=== PATIENT | female | born 1975 | race Caucasian/White ===

== ENCOUNTER 2017-10-25 16:00 | Outpatient (CLI) | payer OTHER | END 2017-10-25 16:01 | disposition home or self-care (01) | LOC: BICRAD 16:00 | PROVIDERS: ATTEND Family Medicine | DX: M54.2 Cervicalgia (principal); M47.892 Other spondylosis, cervical region | CPT/HCPCS: 72052 ==

== ENCOUNTER 2017-12-05 10:21 | Day surgery (SDC) | payer OTHER ==
[2017-12-01 17:02] VITALS: BMI 20.3
[2017-12-05] MEDS ORDERED: Lidocaine 1% w/Epinephrine 1:200K 30 ML VIAL ONE (11:56)
--- NOTE | 2017-12-05 15:25 | OP ---
DATE OF SERVICE: 12/05/2017 LOOP RECORDER IMPLANTATION REFERRING PHYSICIAN: Dr. Jef Pinto. REASON FOR PROCEDURE: Ms. Mcdowell is a 42-year-old woman with prior history of SVT and ablation, who h as now syncopal spells, etiology unclear, rule out arrhythmic etiology. PROCEDURE: After prepping and draping the precordial area, the mid sternal area around the 4th inter costal space was prepped, draped, and anesthetized with subcutaneous lidocaine. Incision was made in this area and a standard LINQ loop recorder was implanted in parallel to the sternum line to avoid t he best implant area. The model #36714. The serial number [id number]. The wound was closed with Dermabond and Steri-Strips. CONCLUSION: Successful LINQ recorder implant. PLAN: Routine monitoring.
== END 2017-12-05 12:52 | disposition home or self-care (01) ==
LOC: CCL 10:21
PROVIDERS: ATTEND Internal Medicine Cardiovascular Disease
PROC: 0JH602Z Insertion of Monitoring Device into Chest Subcutaneous Tissue and Fascia, Open Approach (ICD-10-PCS; principal; 2017-12-05)
DX: R55 Syncope and collapse (principal); I47.1 Supraventricular tachycardia; I45.6 Pre-excitation syndrome; Z87.891 Personal history of nicotine dependence; Z79.899 Other long term (current) drug therapy; Z98.890 Other specified postprocedural states
CPT/HCPCS: 33282; C1764

== ENCOUNTER 2020-07-01 11:56 | Emergency (ER) | payer OTHER ==
[~2020-07-01 11:56] MED LIST: Iopamidol-370 76% 500 ML 1 ML ONE
--- NOTE | 2020-07-01 12:27 | RAD ---
Exam: Chest one view HISTORY:Black stool, x5 days. Epigastric pain. Comparison: 09/02/2004, 12/18/2014 FINDINGS: Cardiac silhouette:Normal cardiac silhouette. Loop recorder is noted. Aorta: Unremarkable Pulmonary vessels: Normal Costophrenic angles: Clear LUNGS: No masses or consolidation. Pneumothorax: None Osseous abnormalities: None IMPRESSION: No acute cardiopulmonary process.
[2020-07-01 13:00] LABS: #Basophils 0.1 thou/uL (0.0-0.2); #Eosinphils 0.1 thou/uL (0.0-0.7); #Lymphocytes 2.4 thou/uL (1.20-3.40); #Monocytes 0.6 thou/uL (0.11-0.59); %Basophils 1.1 % (0.0-1.0); %Eosinophils 1.2 % (0.0-10.0); %Lymphocytes 29.3 % (21.0-51.0); %Monocytes 7.6 % (0.0-10.0); %Neutrophils 60.9 % (42.0-75.0); Hemoglobin 15.1 g/dL (12.0-16.0); Mean Corpuscular HGB CONC 34.1 g/dL (32.0-36.0); Mean Corpuscular Hemoglobin 34.4 pg (27.0-31.0); Mean Platelet Volume 6.3 fL (7.4-10.4); Platelet Count 318 thou/uL (130-400); RBC Distribution Width 11.4 % (11.5-14.5); White Blood Cell (WBC) Count 8.1 thou/uL (4.8-10.8)
[2020-07-01 13:12] LABS: ALT (SGPT) 7 U/L (8-55); AST (SGOT) 11 U/L (5-34); Albumin 3.7 g/dL (3.5-5.0); Alkaline Phosphatase 47 U/L (40-110); Anion Gap 12 mmol/L (10-20); BUN (Urea Nitrogen) 16 mg/dL (7.0-18.7); Bilirubin, Total 0.9 mg/dL (0.2-1.2); CK (CPK) 36 U/L (29-168); Calc. Creatinine Clearance 0 mL/min (70-130); Calcium 8.6 mg/dL (7.8-10.44); Carbon Dioxide 28 mmol/L (22-29); Chloride 102 mmol/L (98-107); Estimated GFR-MDRD 87; Globulin 2.6 g/dL (2.4-3.5); Glucose 88 mg/dL (70-105); Lipase 126 U/L (8-78); Potassium 4.6 mmol/L (3.5-5.1); Protein, Total 6.3 g/dL (6.0-8.3); Sodium 137 mmol/L (136-145)
--- NOTE | 2020-07-01 13:24 | ULT ---
US Gallbladder RUQ: 07/01/2020 12:58 PM CLINICAL HISTORY: Right upper quadrant abdominal pain. STUDY: Limited right upper quadrant ultrasound of abdomen. COMPARISON: None. FINDINGS: Liver: Size: Normal. Echogenicity: Normal. Contour: Smooth. Mass: None. Bile ducts: No intrahepatic or extrahepatic biliary dilatation. Common bile duct measures 2 mm. Gallbladder: Normal. Pancreas: Head, body, and tail appear normal. Right kidney: No pelvicalyceal dilatation. Right kidney measuring 10.3 cm in length. IMPRESSION: Unremarkable exam.
[2020-07-01] MEDS ORDERED: Morphine 4 MG/ML VIAL ONE (14:50)
[2020-07-01] MEDS ORDERED: Ondansetron PF 4 MG/2 ML Vial ONE (14:50)
--- NOTE | 2020-07-01 14:52 | CT ---
CT ABDOMEN AND PELVIS WITH CONTRAST: 07/01/20 HISTORY: Diffuse upper abdominal pain. COMPARISON: Ultrasound same day of the gallbladder. FINDINGS: Lung bases are relatively clear. No pericardial effusion. The liver, gallbladder, spleen, and pancrea s are unremarkable. Abnormal proximal small bowel rotation. The aortic contour is nonaneurysmal. The gonadal veins are dilated along with the adnexal veins. This is asymmetric on the left. Hypodensity of the left ovary only measuring up to 2 cm in size. A smaller hypodensity of the right o vary is present. No free intraperitoneal gas or fluid. No dilated loops of large or small bowel. Suture material is noted along the cecal apex. The portal vein is patent. Celiac trunk and superior mesenteric arteries are patent. Some moderate degenerative disc space disease at L2-3. No acute osseous abnormality. Renal enhancement is symmetric bilaterally. IMPRESSION: 1. No acute intra-abdominal inflammatory process. 2. Very large asymmetric left sided gonadal veins suggesting chronic pelvic congestive syndrome can be the source of chronic pain. POS: [facility]
== END 2020-07-01 15:45 | disposition home or self-care (01) ==
LOC: ERS 11:56
DX: R10.13 Epigastric pain (principal); N94.89 Other specified conditions associated with female genital organs and menstrual cycle; Z79.899 Other long term (current) drug therapy; I45.6 Pre-excitation syndrome; F17.290 Nicotine dependence, other tobacco product, uncomplicated
CPT/HCPCS: 36415; 71045; 74177; 76705; 80053; 82274; 82550; 83690; 84484; 85025; 86850; 86900; 86901; 93005; 96374; 96375; J2270; J2405; Q9967

== ENCOUNTER 2020-09-17 22:27 | Emergency (ER) | payer OTHER ==
[2020-09-18] MEDS ORDERED: Lidocaine 1% (PF) 30 ML VIAL ONE (00:49)
[2020-09-18] MEDS ORDERED: Boostrix 0.5 ML (Tdap) VIAL ONE (00:50)
== END 2020-09-18 01:34 | disposition home or self-care (01) ==
LOC: ERS 22:27
DX: S61.211A Laceration without foreign body of left index finger without damage to nail, initial encounter (principal); W26.0XXA Contact with knife, initial encounter
CPT/HCPCS: 12001; 90471; 90715; J2001

== ENCOUNTER 2021-02-13 13:55 | Emergency (ER) | payer OTHER ==
[2021-02-13 14:34] LABS: #Basophils 0.1 thou/uL (0.0-0.2); #Eosinphils 0.1 thou/uL (0.0-0.7); #Monocytes 0.8 thou/uL (0.11-0.59); %Basophils 0.6 % (0.0-1.0); %Eosinophils 1.1 % (0.0-10.0); %Lymphocytes 16.8 % (21.0-51.0); %Monocytes 6.9 % (0.0-10.0); %Neutrophils 74.6 % (42.0-75.0); Hemoglobin 14.7 g/dL (12.0-16.0); Mean Corpuscular HGB CONC 35.2 g/dL (32.0-36.0); Mean Corpuscular Hemoglobin 35.5 pg (27.0-31.0); Mean Platelet Volume 6.4 fL (7.4-10.4); Platelet Count 313 thou/uL (130-400); RBC Distribution Width 11.5 % (11.5-14.5); Red Blood Cell (RBC) Count 4.15 mill/uL (4.20-5.40); White Blood Cell (WBC) Count 12.1 thou/uL (4.8-10.8)
[2021-02-13 14:52] LABS: Bacteria/HPF None Seen HPF (None Seen); Bilirubin 1+ (Negative); Blood, Urine 3+ (Negative); Clarity Extra Turbid (Clear); Glucose, Urine (Dipstick) Normal (Negative); Ketone, Urine Negative (Negative); Leukocyte 500 Leu/uL (Negative); Nitrite 1+ (Negative); Pregnancy Test - Urine (BHCG) Negative (Negative); Pregu Control Background? CLEAR/WHITE (CLR/WHITE); Pregu Control Bar Appear? YES (CONTROL BAR); Protein, Urine (Dipstick) 50 mg/dL (Neg-Trace); RBC/HPF Greater than 50 HPF (0-3); WBC/HPF Greater than 50 HPF (0-3); pH, Urine 6.5 (5.0-9.0)
[2021-02-13 14:56] LABS: ALT (SGPT) 11 U/L (8-55); AST (SGOT) 16 U/L (5-34); Albumin 3.7 g/dL (3.5-5.0); Alkaline Phosphatase 53 U/L (40-110); Anion Gap 12 mmol/L (10-20); BUN (Urea Nitrogen) 13 mg/dL (7.0-18.7); Bilirubin, Total 1.1 mg/dL (0.2-1.2); Calc. Creatinine Clearance 0 mL/min (70-130); Carbon Dioxide 28 mmol/L (22-29); Chloride 101 mmol/L (98-107); Globulin 2.9 g/dL (2.4-3.5); Lipase 20 U/L (8-78); Potassium 3.6 mmol/L (3.5-5.1); Protein, Total 6.6 g/dL (6.0-8.3); Sodium 137 mmol/L (136-145)
[2021-02-13 15:04] LABS: Glucose 56 mg/dL (70-105)
[2021-02-13] MEDS ORDERED: cefTRIAXone\\ROCEPHIN 1 GM VIAL ONE (15:43)
== END 2021-02-13 16:15 | disposition home or self-care (01) ==
LOC: ERS 13:55
DX: N12 Tubulo-interstitial nephritis, not specified as acute or chronic (principal); N30.91 Cystitis, unspecified with hematuria; I45.6 Pre-excitation syndrome; D72.829 Elevated white blood cell count, unspecified; F17.290 Nicotine dependence, other tobacco product, uncomplicated; Z79.899 Other long term (current) drug therapy
CPT/HCPCS: 80053; 81003; 81015; 81025; 83690; 85025; 87077; 87086; 87186; 96365; J0696